=== PATIENT | male | born 1975 | race Caucasian/White ===

== ENCOUNTER 2017-03-07 14:11 | Emergency (ER) | payer MEDICARE, MEDICAID ==
[2017-03-07 14:49] VITALS: BP 119/81; PULSE 81; TEMP 98; O2SAT 98
[2017-03-07] MEDS ORDERED: Albuterol-Ipratrop 3 mg / 0.5 (3 ml) UD INH STA (15:17)
[2017-03-07] MEDS ORDERED: Albuterol-Ipratrop 3 mg / 0.5 (3 ml) UD ONE (15:20)
--- NOTE | 2017-03-07 16:21 | RAD ---
HISTORY: cough, SOB COMPARISON: No prior. TECHNIQUE: Chest PA and lateral FINDINGS: LUNGS: No active pulmonary disease. PLEURA: No significant pleural effusion identified. No pneumothorax apparent. CARDIOVASCULAR: Normal. OSSEOUS STRUCTURES: No significant abnormalities. VISUALIZED UPPER ABDOMEN: Normal. OTHER FINDINGS: None. IMPRESSION: No active disease.
--- NOTE | 2017-03-07 16:32 | C.PDOC ---
History Of Present Illness 41 yr old male with PMhx of asthma, presents to the ER with complaints of increase chest tightness and SOB, associated with cough for the past 1 week. Patient states he is getting moderate relief with only the pump, prompting the ED visit. Patient denies fever, chest pain, nausea, vomiting, back pain, weakness or numbness. Time Seen by Provider: 03/07/17 14:58 Chief Complaint (Nursing): Shortness Of Breath History Per: Patient History/Exam Limitations: no limitations Onset/Duration Of Symptoms: Days (1 week) Current Symptoms Are (Timing): Still Present Past Medical History Reviewed: Historical Data, Nursing Documentation, Vital Signs Vital Signs: Last Vital Signs Temp 98 F 03/07/17 14:45 Pulse 81 03/07/17 14:45 Resp 20 03/07/17 16:43 BP 119/81 03/07/17 14:45 Pulse Ox 98 03/07/17 16:57 - Medical History PMH: Asthma - [facility] Procedures INJECT/INFUSE NEC (03/01/13) NEBULIZER THERAPY (03/01/13) Family History: States: No Known Family Hx - Social History Hx Tobacco Use: No Hx Alcohol Use: No Hx Substance Use: No - Immunization History Hx Tetanus Toxoid Vaccination: No Hx Influenza Vaccination: No Hx Pneumococcal Vaccination: No Review Of Systems Except As Marked, All Systems Reviewed And Found Negative. Constitutional: Negative for: Fever Cardiovascular: Positive for: Other ((+) Chest tightness). Negative for: Chest Pain Respiratory: Positive for: Cough, Shortness of Breath Gastrointestinal: Negative for: Nausea, Vomiting Musculoskeletal: Negative for: Back Pain Neurological: Negative for: Weakness, Numbness Physical Exam - Physical Exam Appears: Non-toxic, No Acute Distress Skin: Normal Color, Warm, Dry, No Rash Head: Atraumatic, Normacephalic Oral Mucosa: Moist Cardiovascular: Rhythm Regular, No Murmur Respiratory: No Rales, No Rhonchi, Wheezing (Minimal wheezing), Other (No retractions) Gastrointestinal/Abdominal: Normal Exam, Soft, No Tenderness, No Guarding, No Rebound Extremity: Normal ROM, No Swelling Neurological/Psych: Oriented x3, Normal Speech, Normal Motor ED Course And Treatment O2 Sat by Pulse Oximetry: 98 (RA) Pulse Ox Interpretation: Normal - Radiology CXR: Interpreted by Me, Viewed By Me CXR Interpretation: Yes: No Acute Disease. No: Infiltrates Medical Decision Making Medical Decision Making: PLAN: * CXR * Albuterol INH * Prednisone PO Disposition - Disposition Referrals: Elvia Alba MD [Medical Doctor] - Disposition: HOME/ ROUTINE Disposition Time: 16:30 Condition: GOOD Additional Instructions: Follow up with the medical doctor within 1-2 days. Return if worsened. Prescriptions: Loratadine [Claritin] 10 mg PO DAILY #10 tab predniSONE [Prednisone] 20 mg PO BID #10 tab Instructions: Asthma (ED) Forms: [employer] (Yi) - POA Present On Arrival: None - Clinical Impression Clinical Impression: Acute asthma - PA / [employer]DER / Resident Statement MD/DO has reviewed & agrees with the documentation as recorded. - Scribe Statement The provider has reviewed the documentation as recorded by the Scribe Neelima Irwin All medical record entries made by the Scribe were at my direction and personally dictated by me. I have reviewed the chart and agree that the record accurately reflects my personal performance of the history, physical exam, medical decision making, and the department course for this patient. I have also personally directed, reviewed, and agree with the discharge instructions and disposition.
[2017-03-07 16:44] VITALS: RESP 20
== END 2017-03-07 16:43 | disposition home or self-care (01) ==
LOC: C.ER 14:11
DX: J45.909 Unspecified asthma, uncomplicated (principal)